=== PATIENT | male | born 1985 | race Caucasian/White ===

== ENCOUNTER 2017-02-27 19:05 | Emergency (ER) | payer OTHER ==
[~2017-02-27] VITALS: Ht 180.3 cm; Wt 106.8 kg
[2017-02-27 19:08] VITALS: TEMP 36.9; Ht 180.3 cm; Wt 106.8 kg
[2017-02-27] MEDS ORDERED: ALPR-411 PO (19:23)
[2017-02-27] MEDS ORDERED: METO50TA16 PO (19:23)
[2017-02-27] MEDS ORDERED: ALPRAZOLAM 0.5 MG TAB PO STA (19:31)
--- NOTE | 2017-02-27 19:37 | EMERGENCY ROOM VISIT NOTE ---
History Report prepared by Gaye: Taras Nascimento Under the Supervision of: Dr. Lidna Choe M.D. First contact with patient: 19:12 Chief Complaint: MEDICATION REFILL REQUEST Stated Complaint: ANXIETY KHLOE RITCHIE,HAVE HAD SEIZURES BEFORE FOR History of Present Illness The patient is a 31 year old male who presents to the Emergency Room with complaints of persistent anxiety starting yesterday. The patient states that he travels a lot and is prescribed one-half mg of Xanax twice a day by his PCP in [place]. The patient ran out of his prescription 2 days ago. He has a history of seizures related to anxiety occurring 2 years ago. He denies fevers, chills, or any other complaints. Source of History: patient Onset: yesterday Position: other (global) Quality: other (anxiety) Timing: other (persistent) Associated Symptoms: No fevers, No chills Review of Systems See HPI for pertinent positives & negatives. A total of 6 systems reviewed and were otherwise negative. Past Medical & Surgical Medical Problems: (1) Anxiety (2) Seizure Family History Patient reports no known family medical history. Social History Smoking Status: Current Every Day Smoker Alcohol Use: none Marital Status: single Occupation Status: employed Current/Historical Medications Scheduled Alprazolam (Xanax), 0.5 MG PO BID Metoprolol Tartrate (Lopressor) (Lopressor), 50 MG PO DAILY Allergies Coded Allergies: Tramadol (Verified Allergy, Severe, SEIZURE, 02/27/17) Physical Exam Vital Signs Date Time Temp Pulse Resp B/P (MAP) Pulse Ox O2 Delivery O2 Flow Rate FiO2 02/27/17 19:59 84 16 179/104 94 02/27/17 19:08 36.9 99 18 162/91 93 Room Air Physical Exam Vital signs reviewed. General: Well-appearing 31-year-old male, in no significant distress. HEENT: No scleral icterus, PERRLA, neck supple. Atraumatic. Cardiovascular: Regular rate and rhythm, no extra sounds. Pulmonary: Clear to auscultation bilaterally, normal work of breathing. Abdomen: Soft, nontender, nondistended, positive bowel sounds. Musculoskeletal: Atraumatic, no peripheral edema. Neurologic: Patient awake alert and oriented x 3 Skin: Warm, dry, no rash Medical Decision & Procedures Medications Administered Medications (Trade) Dose Ordered Sig/Wander Route Start Time Stop Time Status Last Admin Dose Admin Alprazolam (Xanax Tab) 0.5 mg NOW STAT PO 02/27/17 19:31 02/27/17 19:32 DC 02/27/17 19:39 0.5 MG ED Course 1911: Past medical records reviewed. The patient was evaluated in room A03. A complete history and physical examination was performed. 1930: Xanax Tab 0.5 mg PO. Upon reevaluation, the patient appeared to have improvement of his symptoms. I discussed findings with him. He verbalized agreement of the treatment plan. He was discharged home. Medical Decision This patient was evaluated and appeared to be in no significant distress. Patient was searched and the [place] and found to have several short Xanax prescriptions from primarily ER providers. He states he does have a chronic prescription for Xanax however I feel uncomfortable with renewing a prescription at this time. He was given one tablet of 0.5 mg Xanax. He requested to take it home and use of over bed. The patient will be discharged follow-up with the PCP and return to the ER for worsening of symptoms or any medical concerns. [place] Drug Monitoring Program Search Results: patient reviewed within database Blood Pressure Screening Patient's blood pressure: Elevated blood pressure Blood pressure disposition: Elevated BP felt to be situational Impression Primary Impression: Encounter for medication refill Scribe Attestation The scribe's documentation has been prepared under my direction and personally reviewed by me in its entirety. I confirm that the note above accurately reflects all work, treatment, procedures, and medical decision making performed by me. Departure Information Dispostion Home / Self-Care Referrals No Doctor Assigned Forms HOME CARE DOCUMENTATION FORM, IMPORTANT VISIT INFORMATION, WORK / SCHOOL INSTRUCTIONS Patient Instructions My [facility] Additional Instructions Take xanax 0.5 mg tonight. Follow up with your doctor upon return home for medication review. Return to the ED for worsening of symptoms or any medical concerns.
[2017-02-27 19:59] VITALS: BP 179/104; PULSE 84; O2SAT 94
== END 2017-02-27 20:13 | disposition home or self-care (01) ==
LOC: C.EDB 19:08 → C.EDA 20:13
DX: Z76.0 Encounter for issue of repeat prescription (principal); F41.9 Anxiety disorder, unspecified; F17.200 Nicotine dependence, unspecified, uncomplicated